=== PATIENT | male | born 1965 | race Caucasian/White ===

== ENCOUNTER 2017-06-14 08:32 | Emergency (ER) | payer OTHER, SELFPAY | END 2017-06-14 10:04 | disposition home or self-care (01) | PROVIDERS: Emergency Provider Nurse Practitioner; Family Provider Family Medicine; Visit Provider Nurse Practitioner | DX: J32.9 Chronic sinusitis, unspecified (principal); I20.9 Angina pectoris, unspecified; Z87.891 Personal history of nicotine dependence | CPT/HCPCS: 87804; 96372; 99201 ==

== ENCOUNTER → 2017-09-12 15:13 | Outpatient (POV) | payer OTHER, SELFPAY | PROVIDERS: Visit Provider Nurse Practitioner Acute Care | DX: Z00.00 Encounter for general adult medical examination without abnormal findings (principal) ==

== ENCOUNTER → 2017-10-03 15:24 | Outpatient (CLI) | payer OTHER, SELFPAY ==
[2017-10-03 15:36] VITALS: BMI 20.5
[2017-10-03 15:58] VITALS: BP 148/99; PULSE 89; RESP 18; TEMP 36.6; O2SAT 98
[2017-10-03 16:00] VITALS: BP 147/100; PULSE 68; RESP 20; TEMP 36.9; O2SAT 96
[2017-10-03 16:02] LABS: Blood Urea Nitrogen 17 mg/dL (7-18); Carbon Dioxide 22 mmol/L (21.0-32.0); Chloride 101 mmol/L (98-107); Creatinine Clearance Estimated 89 mL/min (0-300); Creatinine,Serum 0.89 mg/dL (0.70-1.30); Estimated Glomerular Filt Rate 89 ml/min (>60); GFR (African American) 108 ML/MIN (>60); Glucose 137 mg/dL (74-106); Magnesium 1.8 mg/dL (1.4-2.2); Sodium 137 mmol/L (136-145)
[2017-10-03 16:30] VITALS: BP 135/58; PULSE 68; RESP 20; TEMP 36.9; O2SAT 96
[2017-10-03 17:00] VITALS: BP 135/70; PULSE 68; RESP 20; TEMP 36.4; O2SAT 96
[2017-10-03 20:14] VITALS: BP 165/75; PULSE 77; RESP 18; TEMP 36.7; O2SAT 99
== END ==
PROVIDERS: PCP Family Medicine; Visit Provider Family Medicine
DX: E86.0 Dehydration (principal)
CPT/HCPCS: 80048; 83735; 96360; 96361

== ENCOUNTER → 2017-10-12 09:44 | Outpatient (CLI) | payer OTHER, SELFPAY ==
--- NOTE | 2017-10-12 10:02 | CT_ITS ---
CT angio LE BI CT angiogram abdominal aorta with bilateral lower extremity runoff INDICATION: Bilateral lower extremity claudication, leg pain, left greater than right ITS.REASON: CLAUDICATION OF LEFT LOWER EXTREMITY ORDERING PHYSICIAN: Luis Gamez MD PATIENT AGE: 52 years TECHNIQUE: Axial images are obtained following the intravenous ministration 1 20 mL of Isovue-370 contrast. 3-D, Sagittal and coronal reformatted images are reviewed as well. All CT scans at the facility use one or more dose reduction, viz: automated exposure control; ma/kV adjustment per patient size (including targeted exams where dose is matched to indication; i.e. head); or iterative reconstruction technique. FINDINGS: Angiographic findings: Aortogram: No evidence of aortic aneurysm. Atherosclerotic changes involve the aorta and its branches with approximately 50% stenosis of the origin of the right renal artery. Mild stenosis of the origin of the celiac artery of 40%. The LUZ ELENA is not visualized. There are 2 accessory right renal arteries going to the mid and lower pole of the right kidney with high-grade stenosis of the artery to the mid polar region of the right kidney of greater than 50%. Atheromatous changes involve both common, external, and internal iliac arteries that are moderate amount of atheromatous plaque. High-grade stenosis involving the left distal external iliac artery of 75%. Right lower extremity runoff: Generalized atheromatous changes. 75% stenosis of the ostium of the right SFA. Segmental areas of stenosis involving the entire length of the right SFA radiating up to 50% in the mid to distal SFA. Atheromatous changes involving the popliteal artery on the right and the tibial peroneal trunk with diffuse multisegmental areas of stenosis involving the anterior tibial, posterior tibial, and peroneal artery. Posterior tibial and peroneal arteries are patent at the ankle. Left lower extremity runoff: There is high-grade stenosis of the distal left external iliac artery of 75%. Left lower extremity runoff: Segmental areas of stenosis involving the SFA, popliteal, and runoff vessels. There is a high-grade area of stenosis involving the proximal left SFA of 80% with a long segment of narrowing involving the mid left SFA resulting in occlusion of the mid left SFA with reconstitution in the distal SFA followed by areas of stenosis of up to 75%. The popliteal artery is patent although somewhat small.. Significant atheromatous segmental plaques involving the trifurcation vessels and the runoff. The peroneal and posterior tibial are patent at the ankle. Nonvascular findings: The lung bases are clear. The liver, spleen, adrenal glands and pancreas are unremarkable. There has been prior cholecystectomy with some slight increase in density of the portal region which may be related to partial volume averaging artifact from unopacified duodenum and portal vessels. Follow-up exam with oral contrast may confirm. There is mild thickening versus nondistention of the colon. No pelvic mass or abnormal fluid collection is evident. IMPRESSION: 1. Extensive atheromatous changes of the abdominal aorta and bilateral lower extremity runoffs as described above. Significant findings include: Right renal artery stenosis with 3 right renal arteries. High grade stenosis of the left external iliac artery is 75%. 80% stenosis of proximal left SFA with long segment stenosis and occlusion of the mid left SFA with reconstitution of the mid to distal left SFA. 75% stenosis of the ostium of the right SFA. 2. Mild thickening versus nondistention of the colon. Colitis is a consideration. 3. Slight increased density within the portal region which may be due to partial volume averaging artifact. This may become firm with follow-up with oral co
== END ==
PROVIDERS: Family Provider Family Medicine; PCP Family Medicine; Visit Provider Family Medicine
DX: I73.9 Peripheral vascular disease, unspecified (principal)
CPT/HCPCS: 73701; Q9967

== ENCOUNTER → 2017-10-24 10:33 | Outpatient (CLI) | payer OTHER, SELFPAY ==
[2017-10-24 11:27] LABS: Anion Gap 14.3 mEq/L (5-15); Blood Urea Nitrogen 9 mg/dL (7-18); Carbon Dioxide 23 mmol/L (21.0-32.0); Chloride 104 mmol/L (98-107); Creatinine,Serum 0.82 mg/dL (0.70-1.30); Estimated Glomerular Filt Rate 98 ml/min (>60); GFR (African American) 118 ML/MIN (>60); Glucose 145 mg/dL (74-106); Magnesium 1.5 mg/dL (1.4-2.2); Potassium 3.3 mmoL/L (3.5-5.1); Sodium 138 mmol/L (136-145)
== END ==
PROVIDERS: Visit Provider Internal Medicine
DX: E87.6 Hypokalemia (principal)
CPT/HCPCS: 36415; 80048; 83735

== ENCOUNTER → 2018-10-10 07:35 | Outpatient (CLI) | payer OTHER, SELFPAY ==
[2018-10-10 08:18] LABS: Basophils # 0.1 K/mm3 (0-0.2); Basophils % 0.5 % (0.1-2.0); Eosinophils # 0.4 K/mm3 (0.0-0.4); Eosinophils % 3.9 % (0.1-12.0); Hemoglobin 12.6 g/dL (14.1-18.0); Lymphocytes # 1.1 K/mm3 (0.7-4.5); Lymphocytes % 11.6 % (10-50); Mean Corpuscular HGB Conc 31.4 g/dL (31.8-35.4); Mean Corpuscular Hemoglobin 30.4 pg (27.0-31.2); Mean Corpuscular Volume 96.8 fl (80-94); Mean Platelet Volume 7.4 fl (7.4-10.4); Monocytes # 0.5 K/mm3 (0.1-1.0); Monocytes % 5.2 % (1.7-9.3); Neutrophils # 7.7 K/mm3 (1.8-7.8); Neutrophils % 78.8 % (37.0-80.0); Platelet Count 355 K/mm3 (142-424); Red Blood Count 4.13 M/mm3 (4.60-6.20); Red Cell Distribution Width 17.1 % (11.5-17.5); White Blood Count 9.8 K/mm3 (4.8-10.8)
[2018-10-10 09:22] LABS: Anion Gap 14.2 mEq/L (5-15); Blood Urea Nitrogen 11 mg/dL (7-18); Carbon Dioxide 24 mmol/L (21.0-32.0); Chloride 105 mmol/L (98-107); Chol/HDL Ratio 3.9 (1-3.5); Cholesterol 154 mg/dL (140-200); Creatinine,Serum 0.82 mg/dL (0.70-1.30); Estimated Glomerular Filt Rate 98 ml/min (>60); GFR (African American) 118 ML/MIN (>60); Glucose 114 mg/dL (74-106); HDL Cholesterol 40 mg/dL (27-67); LDL Cholesterol 87 mg/dL (0-130); Potassium 4.2 mmoL/L (3.5-5.1); Sodium 139 mmol/L (136-145); Triglycerides 134 mg/dL (30-200); VLDL Cholesterol 27 mg/dL (0-40)
[2018-10-11 09:13] LABS: LH 11.2 mIU/mL (1.7-8.6)
[2018-10-12 07:10] LABS: Testosterone,Total 478 ng/dL (264-916)
[2018-10-14 12:39] LABS: Vitamin A 62.3 ug/dL (20.1-62.0); Vitamin E Alpha Tocopherol 9.9 mg/L (7.0-25.1)
== END ==
PROVIDERS: Physician Assistant Medical; Visit Provider Family Medicine
DX: K86.1 Other chronic pancreatitis (principal); R68.82 Decreased libido; J44.9 Chronic obstructive pulmonary disease, unspecified; I77.9 Disorder of arteries and arterioles, unspecified; E87.6 Hypokalemia; F17.210 Nicotine dependence, cigarettes, uncomplicated
CPT/HCPCS: 36415; 80048; 80061; 82652; 83001; 83002; 84403; 84446; 84590; 85025

== ENCOUNTER → 2019-07-31 09:18 | Outpatient (CLI) | payer OTHER, SELFPAY ==
--- NOTE | 2019-07-31 09:23 | XR_ITS ---
PROCEDURE: XR FOOT WT BEARING LT 3V CLINICAL INDICATION: pain COMPARISON: FTL2 FOOT-LT-2 VIEWS from 08/19/2016 FTR2 FOOT-RT-2 VIEWS from 08/19/2016 FINDINGS: No fracture or dislocation. No lytic or blastic change. There is normal mineralization. The joint spaces are well-preserved. No significant degenerative/arthritic changes. No erosive changes evident. Other findings:None. IMPRESSION: Negative left foot Dictated by: Addi Olivier MD 07/31/2019 10:17 Electronically signed by Addi Olivier MD in [place] 07/31/2019 10:17
--- NOTE | 2019-07-31 09:23 | XR_ITS ---
PROCEDURE: XR FOOT WT BEARING RT 3V CLINICAL INDICATION: pain COMPARISON: FTL2 FOOT-LT-2 VIEWS from 08/19/2016 FTR2 FOOT-RT-2 VIEWS from 08/19/2016 FINDINGS: No fracture or dislocation. No lytic or blastic change. There is normal mineralization. The joint spaces are well-preserved. No significant degenerative/arthritic changes. No erosive changes evident. Other findings:Small area of sclerosis is present in the posterior aspect of the calcaneus consistent with a bone island. There may also be a bone island in the anterior aspect of the calcaneus. As lucency is noted projecting over the posterior aspect of the talus on the lateral view measuring approximately 6 mm not readily apparent on the previous study. This could even be within the fibula. IMPRESSION: 1. No acute finding. 2. Probable bone islands of the calcaneus. 3. On the lateral view there is a 6 mm lucency projecting over the posterior aspect of the talus/fibular region. Ankle films may provide further evaluation. Dictated by: Addi Olivier MD 07/31/2019 10:16 Electronically signed by Addi Olivier MD in [place] 07/31/2019 10:16
--- NOTE | 2019-07-31 11:19 | XR_ITS ---
PROCEDURE: XR ANKLE WT BEARING LT MIN 3V CLINICAL INDICATION: pain COMPARISON: XR FOOT WT BEARING RT 3V from 07/31/2019 FINDINGS: There is an old fracture versus ununited ossification center at the tip of the medial malleolus. No acute fracture or dislocation. IMPRESSION: Old fracture versus ununited ossification center at the tip the medial malleolus Dictated by: Addi Olivier MD 07/31/2019 15:03 Electronically signed by Addi Olivier MD in [place] 07/31/2019 15:03
--- NOTE | 2019-07-31 11:19 | XR_ITS ---
PROCEDURE: XR ANKLE WT BEARING RT MIN 3V CLINICAL INDICATION: pain Pain COMPARISON: No exams were available for comparison FINDINGS: A small calcific density is present along the anterior medial aspect of the tip the lateral malleolus consistent with an avulsion fracture age indeterminate. No other significant anomalies are evident. IMPRESSION: Small avulsion fracture at the tip the lateral malleolus medially and anteriorly which may be old. Otherwise negative Dictated by: Addi Olivier MD 07/31/2019 15:06 Electronically signed by Addi Olivier MD in [place] 07/31/2019 15:06
[2019-07-31 12:26] LABS: Basophils # 0.1 K/mm3 (0-0.2); Basophils % 0.5 % (0.1-2.0); Eosinophils # 0.2 K/mm3 (0.0-0.4); Eosinophils % 2.4 % (0.1-12.0); Hematocrit 35.2 % (42.0-52.0); Lymphocytes # 1.1 K/mm3 (0.7-4.5); Mean Corpuscular HGB Conc 31.2 g/dL (31.8-35.4); Mean Corpuscular Hemoglobin 29.3 pg (27.0-31.2); Mean Corpuscular Volume 93.8 fl (80-94); Mean Platelet Volume 7.6 fl (7.4-10.4); Monocytes # 0.6 K/mm3 (0.1-1.0); Monocytes % 5.9 % (1.7-9.3); Neutrophils # 8.1 K/mm3 (1.8-7.8); Neutrophils % 80.2 % (37.0-80.0); Platelet Count 406 K/mm3 (142-424); Red Blood Count 3.75 M/mm3 (4.60-6.20); Red Cell Distribution Width 18.2 % (11.5-17.5); White Blood Count 10.1 K/mm3 (4.8-10.8)
[2019-07-31 14:33] LABS: Alanine Aminotransferase 15 U/L (21-72); Albumin Level 3.2 g/dL (3.4-5.0); Alkaline Phosphatase 150 U/L (46-116); Anion Gap 14.9 mEq/L (5-15); Aspartate Amino Transferase 14 U/L (15-37); Bilirubin,Total 0.2 mg/dL (0.2-1.0); Blood Urea Nitrogen 8 mg/dL (7-18); Calcium 8.4 mg/dL (8.5-10.1); Carbon Dioxide 24 mmol/L (21.0-32.0); Chloride 108 mmol/L (98-107); Creatinine,Serum 1.12 mg/dL (0.70-1.30); Estimated Glomerular Filt Rate 68 ml/min (>60); GFR (African American) 82 ML/MIN (>60); Globulin 3.2 gm/dl (1.3-3.2); Glucose 94 mg/dL (74-106); Potassium 3.9 mmoL/L (3.5-5.1); Sodium 143 mmol/L (137-145); Thyroid Stimulating Hormone 2.52 uIU/ml (0.358-3.740); Total Protein,Serum 6.4 g/dL (6.4-8.2)
[2019-08-01 16:29] LABS: Folate 3.8 ng/mL (>3.0); Vitamin B12 508 pg/mL (232-1245); Vitamin D 25 Hydroxy 24.7 ng/mL (30.0-100.0)
== END ==
PROVIDERS: PCP Family Medicine; Visit Provider Podiatrist
DX: M19.072 Primary osteoarthritis, left ankle and foot (principal); M19.071 Primary osteoarthritis, right ankle and foot; M25.372 Other instability, left ankle; M21.372 Foot drop, left foot; L84 Corns and callosities; M21.6X2 Other acquired deformities of left foot; M21.6X1 Other acquired deformities of right foot; G62.9 Polyneuropathy, unspecified
CPT/HCPCS: 36415; 73610; 73630; 80053; 82607; 82652; 82746; 84443; 85025

== ENCOUNTER → 2019-08-13 12:09 | Outpatient (POV) | payer OTHER, SELFPAY | PROVIDERS: PCP Family Medicine; Visit Provider Specialist | DX: M25.372 Other instability, left ankle (principal); M25.572 Pain in left ankle and joints of left foot; R29.898 Other symptoms and signs involving the musculoskeletal system; M21.372 Foot drop, left foot | CPT/HCPCS: 95886; 95909 ==

== ENCOUNTER → 2020-01-31 10:38 | Outpatient (CLI) | payer OTHER, SELFPAY ==
[2020-01-31 10:58] LABS: Basophils # 0.1 K/mm3 (0-0.2); Basophils % 0.4 % (0.1-2.0); Eosinophils # 0.1 K/mm3 (0.0-0.4); Eosinophils % 1.1 % (0.1-12.0); Hematocrit 31.5 % (42.0-52.0); Hemoglobin 9.1 g/dL (14.1-18.0); Lymphocytes # 1.3 K/mm3 (0.7-4.5); Lymphocytes % 10.6 % (10-50); Mean Corpuscular Hemoglobin 26.6 pg (27.0-31.2); Mean Corpuscular Volume 91.7 fl (80-94); Mean Platelet Volume 7.8 fl (7.4-10.4); Monocytes # 0.7 K/mm3 (0.1-1.0); Monocytes % 5.5 % (1.7-9.3); Neutrophils % 82.5 % (37.0-80.0); Platelet Count 660 K/mm3 (142-424); Red Blood Count 3.44 M/mm3 (4.60-6.20); Red Cell Distribution Width 19.4 % (11.5-17.5); White Blood Count 12.2 K/mm3 (4.8-10.8)
[2020-01-31 11:23] LABS: Alanine Aminotransferase 13 U/L (12-78); Albumin Level 2.9 g/dl (3.5-5.0); Alkaline Phosphatase 169 U/L (38-126); Anion Gap 14.8 mEq/L (5-15); Aspartate Amino Transferase 15 U/L (17-59); Bilirubin,Total 0.4 mg/dl (0.2-1.3); Blood Urea Nitrogen 10 mg/dl (9-20); Calcium 8.8 mg/dl (8.4-10.2); Carbon Dioxide 20 mmol/L (22.0-30.0); Chloride 106 mmol/L (98-107); Estimated Glomerular Filt Rate 100 ml/min (>60); GFR (African American) 121 ML/MIN (>60); Glucose 131 mg/dl (74-100); Lipase 233 U/L (23-300); Potassium 3.8 mmoL/L (3.5-5.1); Sodium 137 mmol/L (136-145); Total Protein,Serum 5.9 g/dl (6.3-8.2)
== END ==
PROVIDERS: Visit Provider Physician Assistant Medical
DX: R63.4 Abnormal weight loss (principal)
CPT/HCPCS: 36415; 80053; 83690; 85025

== ENCOUNTER → 2020-03-17 14:10 | Outpatient (CLI) | payer OTHER, SELFPAY ==
[2020-03-17 14:54] LABS: Basophils % 0.1 % (0.1-2.0); Eosinophils % 0.1 % (0.1-12.0); Hematocrit 28.5 % (42.0-52.0); Hemoglobin 8.2 g/dL (14.1-18.0); Lymphocytes # 0.5 K/mm3 (0.7-4.5); Lymphocytes % 2.5 % (10-50); Mean Corpuscular HGB Conc 28.9 g/dL (31.8-35.4); Mean Corpuscular Hemoglobin 27.9 pg (27.0-31.2); Mean Corpuscular Volume 96.3 fl (80-94); Mean Platelet Volume 7.8 fl (7.4-10.4); Monocytes # 0.5 K/mm3 (0.1-1.0); Monocytes % 2.2 % (1.7-9.3); Platelet Count 573 K/mm3 (142-424); Red Blood Count 2.96 M/mm3 (4.60-6.20); Red Cell Distribution Width 18.1 % (11.5-17.5)
[2020-03-17 15:05] LABS: MANUAL DIFFERENTIAL MANUAL DIFFERENTIAL (MANUAL DIFF)
[2020-03-17 15:34] LABS: Chloride 105 mmol/L (98-107); Potassium 4.9 mmoL/L (3.5-5.1); Sodium 132 mmol/L (136-145)
[2020-03-17 15:37] LABS: Alanine Aminotransferase 40 U/L (12-78); Albumin Level 2.5 g/dl (3.5-5.0); Alkaline Phosphatase 111 U/L (38-126); Anion Gap 18.9 mEq/L (5-15); Aspartate Amino Transferase 21 U/L (17-59); Bilirubin,Total 0.3 mg/dl (0.2-1.3); Blood Urea Nitrogen 49 mg/dl (9-20); Calcium 8.7 mg/dl (8.4-10.2); Carbon Dioxide 13 mmol/L (22.0-30.0); Estimated Glomerular Filt Rate 45 ml/min (>60); GFR (African American) 54 ML/MIN (>60); Globulin 2.6 g/dL (1.3-3.2); Glucose 119 mg/dl (74-100); Total Protein,Serum 5.1 g/dl (6.3-8.2)
[2020-03-17 15:48] LABS: Lymphocytes % 5 % (10-50); Monocytes % 4 % (2-9); Neutrophils % 91 % (42-76); Total Cells Counted 100
[2020-03-17 15:49] LABS: Acanthocytes 2+; Anisocytosis 2+; Poikilocytosis 2+; Stomatocytes 2+
== END ==
PROVIDERS: Visit Provider Internal Medicine Medical Oncology
DX: C34.91 Malignant neoplasm of unspecified part of right bronchus or lung (principal)
CPT/HCPCS: 36415; 80053; 85007; 85025

== ENCOUNTER 2020-03-22 12:13 | Inpatient (IN) | payer OTHER, SELFPAY ==
[2020-03-22] VITALS (15 sets, daily range): BP systolic 90–138; BP diastolic 45–87; PULSE 81–112; RESP 14–20; TEMP 36.4–36.7; O2SAT 88–100; BMI 19.8; BMI 13.6
--- NOTE | 2020-03-22 12:16 | HMH.EDGENADL ---
ED Disposition Clinical Impression: Healthcare-associated pneumonia Respiratory failure with hypoxia Qualifiers: Chronicity: acute Qualified Code(s): J96.01 - Acute respiratory failure with hypoxia Acute renal failure Qualifiers: Acute renal failure type: unspecified Qualified Code(s): N17.9 - Acute kidney failure, unspecified Sepsis Qualifiers: Sepsis type: sepsis due to unspecified organism Sepsis acute organ dysfunction status: with acute organ dysfunction Severe sepsis acute organ dysfunction type: acute renal failure Acute renal failure type: unspecified Severe sepsis shock status: without septic shock Qualified Code(s): A41.9 - Sepsis, unspecified organism Metastatic primary lung cancer Qualifiers: Laterality: right Qualified Code(s): C34.91 - Malignant neoplasm of unspecified part of right bronchus or lung Disposition: Admitted As Inpatient Condition on Discharge: Serious - Critical Care Critical Care Time: Yes Attestation: On , the high probability of a clinically significant, sudden or life threatening deterioration of the following system(s) required my full and direct attention, intervention and personal management. The time I documented below is in addition to time spent performing reported procedures but includes the following listed in this critical care notation. Total Critical Care Time: 40 Vital system(s) involved:: Respiratory Failure, Renal Failure My critical care processes included: Assessment & monitoring of V/S, Initial and Re-exams, Data Review/Interpretation, Coordinating Care, Medication Orders and management, Documentation Medical Decision Making - Medical Records Medical records reviewed: Yes: I reviewed the patient's medical records. MR Comment: Reviewed oncology visit with Dr. Sullivan on 03/13/2020. She indicates patient had been admitted to [facility] 02/21/2020 through 03/02/2020. CTA showed a right hilar mass and bilateral small masses and right hilar adenopathy. - Aristeo Inquiry Pt receiving controlled substance: Yes Aristeo was queried for this patient: No Reason not queried -: Emergent pt cond-no time Risks and benefits of using a controlled substance: were not discussed with pt by me Vital Signs: 03/22/20 12:14 03/22/20 12:30 03/22/20 13:00 Temperature 98.1 F Temperature Source Oral Pulse Rate Pulse Rate [Right] 104 H 99 H 98 H Respiratory Rate 17 19 19 Blood Pressure Blood Pressure [Right Arm] 135/78 123/59 L 104/60 L Blood Pressure Mean [Right Arm] 97 80 74 Blood Pressure Source Blood Pressure Source [Right Arm] Blood Pressure Position Blood Pressure Position [Right Arm] 02 Sat by Pulse Oximetry 90 L 92 L 91 L Oxygen Delivery Method Room Air Nasal Cannula Nasal Cannula Oxygen Flow Rate (LPM) 2 03/22/20 13:30 03/22/20 14:00 03/22/20 14:14 Temperature Temperature Source Pulse Rate Pulse Rate [Right] 100 H 102 H 99 H Respiratory Rate 16 15 14 Blood Pressure Blood Pressure [Right Arm] 102/55 L 104/87 L 90/45 L Blood Pressure Mean [Right Arm] 70 92 60 Blood Pressure Source Blood Pressure Source [Right Arm] Automatic Cuff Blood Pressure Position Blood Pressure Position [Right Arm] Sitting 02 Sat by Pulse Oximetry 93 L 90 L 91 L Oxygen Delivery Method Nasal Cannula Nasal Cannula Oxygen Flow Rate (LPM) 2 03/22/20 14:35 03/22/20 15:00 03/22/20 15:17 Temperature 97.7 F Temperature Source Axillary Pulse Rate Pulse Rate [Right] 106 H 99 H 105 H Respiratory Rate 16 20 Blood Pressure Blood Pressure [Right Arm] 100/51 L 105/59 L 138/77 Blood Pressure Mean [Right Arm] 67 74 97 Blood Pressure Source Blood Pressure Source [Right Arm] Automatic Cuff Automatic Cuff Blood Pressure Position Blood Pressure Position [Right Arm] Sitting Supine 02 Sat by Pulse Oximetry 94 L 91 L 88 L Oxygen Delivery Method Nasal Cannula Nasal Cannula Oxygen Flow Rate (LPM) 2 03/22/20 16:46 Temperature 98.1 F
--- NOTE | 2020-03-22 12:24 | ECG_ITS ---
APPROVED REPORT Exam: Resting ECG HR:102 bpm ECG Measurements Heart Rate 102 AXES IL 128 P 82 QRSd 90 QRS 76 QT 334 T 95 QTc 435 <Conclusion> Sinus tachycardia Right atrial enlargement ST elevation, consider early repolarization, pericarditis, or injury Abnormal ECG Electronically signed by : Luis Guerrero, 03/23/2020 09:02:34
[2020-03-22 12:47] LABS: ABG Base Excess -18.5 mmol/L (-2.4-2.3); ABG HCO3 8.8 mmhg (22.0-26.0); ABG Oxygen Saturation 90 % (90-100); ABG PCO2 20.7 mmhg (35.0-45.0); ABG PH 7.25 mmol/L (7.35-7.45); ABG PO2 68.2 mmhg (80-100); ABG TCO2 9.4 mmhg (23-27); Allen's Test Acceptable; Source Right Radial
--- NOTE | 2020-03-22 12:53 | XR_ITS ---
PROCEDURE: XR CHEST PORTABLE CLINICAL HISTORY: soa, lung cancer COMPARISON: CR CXR1 CHEST-PORTABLE from 03/21/2015 CR CXR1 CHEST-PORTABLE from 03/21/2015 CR CXR CHEST(2 VIEWS-NOT PORTABLE) from 05/01/2016 FINDINGS: The lung gallego are mildly hyperexpanded. Coarse patchy ill-defined pneumonic infiltrates are seen in the left perihilar region left upper lobe and more prominent in the left lower lobe primarily superior segment. There is prominent right paratracheal lobulated mass likely adenopathy. There is minimal course ill-defined pneumonic infiltrate right perihilar region and right lower lobe. There is no pleural fluid. Cardiac size is normal and there is no pulmonary congestion. IMPRESSION: Coarse bilateral pneumonic infiltrates certainly more prominent left perihilar region and left lower lobe along with prominent right paratracheal adenopathy and none of these findings were seen on the previous chest films. Dictated by: Dr. Wes Whitten MD 03/22/2020 15:52 Dr. Wes Whitten MD in [place] 03/22/2020 15:52
--- NOTE | 2020-03-22 13:00 | PC.NURSE ---
UNABLE TO OBTAIN BLOOD, STUCK PT MULTIPLE TIMES, NOTIFIED LAB TO COME AND OBTAIN BLOOD SAMPLES.
--- NOTE | 2020-03-22 13:07 | PC.NURSE ---
PT GIVEN WARM BLANKET AND ICE, NO OTHER NEEDS AT THIS TIME.
--- NOTE | 2020-03-22 13:13 | PC.NURSE ---
[facility]
[2020-03-22 13:37] LABS: Chloride 112 mmol/L (98-107); Sodium 138 mmol/L (136-145)
[2020-03-22 13:38] LABS: Basophils # 0.2 K/mm3 (0-0.2); Basophils % 1.1 % (0.1-2.0); Eosinophils % 0.1 % (0.1-12.0); Hematocrit 30.4 % (42.0-52.0); Hemoglobin 8.9 g/dL (14.1-18.0); Lymphocytes # 0.2 K/mm3 (0.7-4.5); Lymphocytes % 1.2 % (10-50); Mean Corpuscular HGB Conc 29.2 g/dL (31.8-35.4); Mean Corpuscular Hemoglobin 27.8 pg (27.0-31.2); Mean Corpuscular Volume 95.3 fl (80-94); Mean Platelet Volume 9.6 fl (7.4-10.4); Monocytes # 0.2 K/mm3 (0.1-1.0); Monocytes % 1.3 % (1.7-9.3); Neutrophils % 96.4 % (37.0-80.0); Platelet Count 427 K/mm3 (142-424); Potassium 4.9 mmoL/L (3.5-5.1); Red Blood Count 3.19 M/mm3 (4.60-6.20); Red Cell Distribution Width 18.4 % (11.5-17.5); White Blood Count 15.5 K/mm3 (4.8-10.8)
[2020-03-22 13:40] LABS: MANUAL DIFFERENTIAL MANUAL DIFFERENTIAL (MANUAL DIFF)
[2020-03-22 13:41] LABS: Calcium 9.3 mg/dl (8.4-10.2); Glucose 223 mg/dl (74-100)
[2020-03-22 13:42] LABS: Lactic Acid 2.3 mmol/L (0.7-2.1)
[2020-03-22 13:47] LABS: Creatinine Clearance Estimated 28 mL/min (50-200); Estimated Glomerular Filt Rate 28 ml/min (>60); GFR (African American) 34 ML/MIN (>60)
[2020-03-22 13:50] LABS: NT Pro Brain Natriuretic Pep. 4640 pg/mL (0-125)
[2020-03-22 13:51] LABS: Acanthocytes 1+; Hypochromasia 1+; Lymphocytes % 3 % (10-50); Monocytes % 3 % (2-9); Neutrophils % 91 % (42-76); Platelet Estimate Normal; Poikilocytosis 1+; Total Cells Counted 100
[2020-03-22 13:52] LABS: Activated Partial Thrombo Time 32.7 seconds (23.6-34.0); Prothrombin Time 10.9 seconds (9.4-11.8)
[2020-03-22 13:53] LABS: Troponin I < 0.01 ng/ml (0.00-0.034)
[2020-03-22 14:04] LABS: Coronavirus 19 IgG Antibody Negative (Negative); Coronavirus 19 IgM Antibody Negative (Negative)
--- NOTE | 2020-03-22 14:22 | PC.NURSE ---
spoke with radiologist and is now speaking with the pt and his family.
--- NOTE | 2020-03-22 14:31 | PC.NURSE ---
Dr Montiel speaking with Dr Leary at this time.
[2020-03-22 15:07] LABS: Alanine Aminotransferase 33 U/L (12-78); Albumin Level 2.7 g/dl (3.5-5.0); Albumin/Globulin Ratio 0.9 (1.1-1.8); Alkaline Phosphatase 158 U/L (38-126); Anion Gap 20.9 mEq/L (5-15); Aspartate Amino Transferase 33 U/L (17-59); Bilirubin,Total 0.3 mg/dl (0.2-1.3); Globulin 3.1 g/dL (1.3-3.2); Total Protein,Serum 5.8 g/dl (6.3-8.2)
[2020-03-22 16:57] LABS: Troponin I < 0.01 ng/ml (0.00-0.034)
[2020-03-22 17:13] LABS: Reflex Lactic Add Lactic Reflex
--- NOTE | 2020-03-22 18:35 | PC.NURSE ---
WHEN PT ARRIVED TO THE FLOOR FROM THE ED IT TOOK 2 ASSIST TO MOVE PT FROM STRETCHER TO BED. PT HAD A SMALL AREA NOTED TO THE BUTTOCKS AND HAS A SCAR ON HIS HEAD FROM SURGERY AT A FEW WEEKS AGO. PT STATED HE WAS IN A LOT OF PAIN RATED 10/10. AFTER PT GOT PAIN MEDICATION HE WAS ASKED IF IT WOULD BE OKAY IF WE TOOK PICTURES OF HIS SKIN ISSUES FOR THE CHART. PT STATED I WOULD REALLY APPRECIATE AFTER I GET THIS PAIN MEDICATION IF YOU WOULD LET ME REST. PT STATED HOPEFULLY HE WOULD FEEL MORE UP TO IT TOMORROW. PT HAS HAD ALL OF HIS IV ANTIBIOTICS THAT HAVE BEEN ORDERED AND IT WAS VERIFIED WITH THAT PT HAD 1 L IVF BOLUS WHILE IN THE ED. PT HAS BEEN OFFERED A NICOTINE PATCH. REFUSED DINNER. PT HAS BEEN SIPPING ON WATER AND EATING ICE. LUNG SOUNDS HAVE SCATTERED RHONCHI. ABDOMEN SOFT/THIN WITH HYPOACTIVE BOWEL SOUNDS. SKIN IS JAUNDICED. WILL CONTINUE TO MONITOR.
[2020-03-22 18:49] LABS: Lactic Acid Follow Up (RFLX 1) 3.4 mmol/L (0.7-2.1)
[2020-03-22 20:22] LABS: Reflex Lactic (2 hrs) Add Lactic Reflex
[2020-03-22 21:30] LABS: Lactic Acid Follow up (RFLX 2) 3.2 mmol/L (0.7-2.1)
--- NOTE | 2020-03-22 22:47 | PC.NURSE ---
1929 pt was again asked about signing consent for pictures to be taken and allowing nursing staff to take pictures of scar on head and small area on buttocks, pt again refused and asked to just rest tonight
[2020-03-23] VITALS (32 sets, daily range): BP systolic 66–110; BP diastolic 31–59; PULSE 48–120; RESP 10–17; TEMP 36.1–36.9; O2SAT 86–95; BMI 14.1
[2020-03-23 06:05] LABS: Basophils # 0.1 K/mm3 (0-0.2); Basophils % 1.1 % (0.1-2.0); Eosinophils % 0.2 % (0.1-12.0); Lymphocytes # 0.1 K/mm3 (0.7-4.5); Lymphocytes % 0.6 % (10-50); Mean Corpuscular HGB Conc 29.6 g/dL (31.8-35.4); Mean Corpuscular Hemoglobin 28.4 pg (27.0-31.2); Mean Corpuscular Volume 95.8 fl (80-94); Mean Platelet Volume 9.5 fl (7.4-10.4); Monocytes # 0.2 K/mm3 (0.1-1.0); Monocytes % 1.6 % (1.7-9.3); Neutrophils # 11.8 K/mm3 (1.8-7.8); Neutrophils % 96.6 % (37.0-80.0); Platelet Count 260 K/mm3 (142-424); Red Blood Count 2.53 M/mm3 (4.60-6.20); Red Cell Distribution Width 19.1 % (11.5-17.5); White Blood Count 12.2 K/mm3 (4.8-10.8)
[2020-03-23 06:07] LABS: Hemoglobin 7.2 g/dL (14.1-18.0)
[2020-03-23 06:08] LABS: Hematocrit 24.2 % (42.0-52.0); MANUAL DIFFERENTIAL MANUAL DIFFERENTIAL (MANUAL DIFF)
--- NOTE | 2020-03-23 06:35 | PC.NURSE ---
shift summary, pt has rested well t/o shift, pt complained of pain one time and was treated per AUG, pt has denied pain two other times, O2 sats have been 90-100% on 3L NC, O2 sats have been hard to get due to cold extremities, pulse ox sensor currently on forehead, pt has remained sinus tach on nuclear monitoring technician
[2020-03-23 06:43] LABS: Anion Gap 21.1 mEq/L (5-15); Chloride 116 mmol/L (98-107); Potassium 5.1 mmoL/L (3.5-5.1); Sodium 141 mmol/L (136-145)
--- NOTE | 2020-03-23 06:45 | PC.NURSE ---
pt has still refused to have pictures taken
[2020-03-23 06:49] LABS: Creatinine Clearance Estimated 21 mL/min (50-200); Estimated Glomerular Filt Rate 27 ml/min (>60); GFR (African American) 32 ML/MIN (>60)
[2020-03-23 06:52] LABS: Lymphocytes % 3 % (10-50); Neutrophils % 89 % (42-76); Platelet Estimate Normal; Poikilocytosis 2+; Total Cells Counted 100
[2020-03-23 06:53] LABS: Anisocytosis 2+; Burr Cells 2+; Hypochromasia 3+; Tear Drop Cells 1+
[2020-03-23 07:01] LABS: Carbon Dioxide 9 mmol/L (22.0-30.0)
[2020-03-23 07:02] LABS: Blood Urea Nitrogen 105 mg/dl (9-20); Glucose 135 mg/dl (74-100)
--- NOTE | 2020-03-23 07:06 | PC.NURSE ---
pt currently on 2 L NC and O2 sat is 93
--- NOTE | 2020-03-23 08:40 | HMH.HP ---
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 Patient was found to have bilateral pneumonia as well as acute kidney injury. Patient was admitted for treatment of hospital-acquired pneumonia due to recent hospitalization at the [facility] where his cancer diagnosis was made. Since discharge from patient is followed up with local oncology with anticipation of beginning some form of treatment as well as local surgeon with scheduled port placement for March 26. Regarding patient's history over the last 3 days the patient is the source of interview and can provide little very little information other than he was weaker and felt short of breath. He is unaware of any fevers. He denies chills. He does endorse a poor appetite and records would indicate patient has lost approximately 20 pounds in the last 2 weeks. Apparently there had been discussion during his visit with Dr. Rodriguez about placement of a feeding tube although there is suspicion of carcinomatosis which could complicate the procedure. [facility] History I have reviewed the patient's past medical history: Yes Medical History: Reports:: Cancer (metastatic lung cancer), Chronic Obstructive Pulmonary Disease (COPD), Peripheral Artery Disease Denies:: Diabetes Mellitus Type 1, Diabetes Mellitus Type 2, MRSA *Have you ever received a pneumonia vaccine?: Yes *Have you received a flu vaccine this season?: Yes Other Surgeries: Yes: Appendectomy, Cholecystectomy, Coronary Stent Amputation: No Fractures: No - *Social History Last grade of school completed: High school graduate Smoking Status: Current every day smoker # Packs/Day (cigarettes): 1 Alcohol Intake: former Substance Use Type: denies use *Occupational Status:: retired Housing: house Household Members: none *Travel in the last 8 weeks: None Family Hx:: Cancer, Hypertension, Stroke Review of Systems - Constitutional Reports anorexia, Reports fatigue, Reports malaise, Reports weakness, Reports weight loss, Denies body ache(s), Denies chills, Denies fever(s) - *Cardiovascular Denies chest pain, Denies chest pain at rest - *Respiratory Reports chest congestion, Reports cough, Reports shortness of breath, Denies change in phlegm color, Denies coughing up blood - *Gastrointestinal Denies abdominal pain, Denies belching - *Genitourinary Denies difficulty urinating - *Musculoskeletal Reports abnormal walking, Reports decreased muscle mass - Integumentary/Breasts Reports change in skin color (Serpiginous brown discoloration on lower back (erythema ab igne)) Meds Home Medications Medication Instructions Recorded Confirmed Type atorvastatin 80 mg tablet 1 tab PO HS 07/31/19 03/22/20 History clopidogrel 75 mg tablet 1 tab PO DAILY 07/31/19 03/22/20 History ptdgfa-uxqzfclh-poxdyuc 1 cap PO DAILY 07/31/19 03/22/20 History 24,000-76,000-120,000 unit capsule,delayed rel aspirin 81 mg tablet,delayed 81 mg PO DAILY 03/13/20 03/22/20 History release dexamethasone 2 mg tablet 2 mg PO BID tab 03/13/20 03/22/20 History gabapentin 300 mg capsule 300 mg PO QID cap 03/13/20 03/22/20 History lisinopril 40 mg tablet 40 mg PO DAILY 03/13/20 03/22/20 History melatonin 3 mg capsule 3 mg PO HS PRN 03/13/20 03/22/20 History omeprazole 40 mg capsule,delayed 40 mg PO BID 03/13/20 03/22/20 History release Amlodipine Besylate [Amlodipine 5 mg PO DAILY 03/22/20 03/22/20 History 5mg tab] Allergies Allergy/AdvReac Type Severity Reaction Status Date / Time No Known Allergies Allergy Verified 03/17/20 13:34 Exam Vital signs and Labs for Last 24 Hours: Temp Pulse Resp BP Pulse Ox 98.3 F 100 H 17 98/55 L 90 L 10
--- NOTE | 2020-03-23 12:17 | HMH.PHAVTE ---
[facility] Pharmacy VTE Monitoring - Patient Demographics Admission date: 03/23/20 Report Date: 03/23/20 Time: 12:17 Allergies/Adverse Reactions: Patient Allergies No Known Allergies Allergy (Verified 03/17/20 13:34) Height: 1.8 m Weight: 45.841 kg Patient Problems: Current Active Problems Respiratory failure with hypoxia (Acute) Healthcare-associated pneumonia (Acute) Acute renal failure (Acute) Sepsis (Acute) Metastatic primary lung cancer (Acute) Klebsiella sepsis (Acute) - VTE Risk Labs: VTE Related Lab Results Hgb 7.2 g/dL (14.1-18.0) L* 03/23/20 05:55 Hct 24.2 % (42.0-52.0) L 03/23/20 05:55 Plt Count 260 K/mm3 (142-424) D 03/23/20 05:55 PT 10.9 seconds (9.4-11.8) 03/22/20 13:15 INR 0.98 (0.9-1.1) 03/22/20 13:15 APTT 32.7 seconds (23.6-34.0) 03/22/20 13:15 BUN 105 mg/dl (9-20) H* 03/23/20 05:55 Creatinine 2.50 mg/dl (0.66-1.25) H 03/23/20 05:55 Estimated Creat Clear 21 mL/min (50-200) 03/23/20 05:55 VTE Score: 5 VTE Risk Level: Low Risk - Prophylaxis Types of VTE Prophylaxis: TEDS Knee High (IGNACIA HOSE ORDERED)
[2020-03-23 16:21] LABS: INR 0.98 (0.9-1.1)
[2020-03-23 16:23] LABS: Blood Urea Nitrogen 88 mg/dl (9-20); Carbon Dioxide 10 mmol/L (22.0-30.0)
[2020-03-23 19:22] LABS: Hemoglobin 8.4 g/dL (14.1-18.0)
[2020-03-23 19:23] LABS: Hematocrit 28.3 % (42.0-52.0)
--- NOTE | 2020-03-23 20:08 | PC.NURSE ---
THIS MORNING PT STATED HE HAD A REALLY GOOD NIGHT AND WAS ABLE TO GET SOME SLEEP. PT WAS SLOW TO RESPOND BUT WAS ABLE TO ANSWER QUESTIONS. PCP SAT AND TALKED TO PT THIS MORNING AND WENT OVER EVERYTHING THOROUGHLY OF WHAT PT WAS UP AGAINST FAR HIS ILLNESS. PT AT THIS TIME WAS NOT READY TO GIVE UP. PCP STATED HE WOULD CALL HIS AND LET HER KNOW WHAT WAS GOING ON. BP THIS MORNING STAYED AROUND 90'S SYSTOLIC. PT HAS HAD SEVERAL STICKS FOR IV ACCESS AND LABS SINCE ARRIVING TO [facility]. IV ACCESS WAS ATTEMPTED THIS MORNING AND UNSUCCESSFUL. PCP RECOMMENDED PICC PLACEMENT. HOUSE WAS NOTIFIED TO CALL NURSE SILK SCREEN FRAME ASSEMBLER TO SEE IF SHE CAN COME IN TO INSERT PICC. PROTONIX DRIP AND IVF'S WAS RUNNING CONCURRENT AT THIS TIME THROUGH 20 G IN THE LT HAND. PT'S BP STARTED TO STEADILY DECLINE AND PT WAS BECOMING LESS RESPONSIVE. PROTONIX DRIP WAS DISCONNECTED AND THE FIRST UNIT OF PRBC'S WAS STARTED. DURING THE TRANSFUSION BP WAS CONTINUING TO DECLINE O2 SATURATION WAS ONLY 90% ON 4 L NC. RESPIRATIONS 12. PCP NOTIFIED AND HE STATED TO ADDRESS CODE STATUS WITH PT'S . LIVING WILL STATES IF PT IS UNABLE TO MAKE DECISIONS FOR HIMSELF HE WAS LEAVING IT UP TO HIS OR DAUGHTER TO. PT'S WAS INFORMED THAT EVEN WITH THE UNIT OF BLOOD RUNNING PT'S BP WAS CONTINUING TO DROP. PT HAS NOT HAD ANY URINARY OUTPUT SO FAR THIS SHIFT. VASOPRESSORS WAS DISCUSSED WITH PT'S AND SHE STATED THAT HE HAS BEEN REALLY SICK FOR ABOUT 5 YEARS AND SINCE THE CANCER DIAGNOSIS HE HAS DECLINED REALLY QUICKLY. STATED HER AND HER DAUGHTER ARE ON THE SAME PAGE AND ARE BOTH AGREEABLE WITH CHANGING PT'S CODE STATUS TO DNR. AFTER SIGNED DNR NURSE SILK SCREEN FRAME ASSEMBLER CAME AND ASKED FAMILY IF THEY STILL WANTED TO PROCEED WITH PICC LINE PLACEMENT. PROCEDURE WAS EXPLAINED AND ANOTHER OPTION WAS TO TRY TO FIND ANOTHER IV ACCESS WITH THE ULTRASOUND. AND DAUGHTER WAS AGREEABLE TO THE ULTRASOUND GUIDED IV BUT THEY DID NOT FEEL THE PICC WAS NECESSARY AT THIS POINT. NURSE SILK SCREEN FRAME ASSEMBLER ATTEMPTED BUT WAS UNABLE TO GET IV WITH ULTRASOUND BUT WAS ABLE TO GET ANOTHER ACCESS ( 22 G TO LFA ). AT THE END OF THE FIRST BLOOD TRANSFUSION 20 G IN THE LEFT HAND STARTED TO LEAK AND HAD TO SWITCHED TO THE 22 G. DURING SECOND TRANSFUSION BP CONTINUED TO DECLINE. PT IS COMPLETELY UNRESPONSIVE AT THIS TIME. BP WAS NEVER HIGHER THAN 70'S SYSTOLIC THROUGH THE SECOND UNIT OF PRBC'S. (PCP UPDATED) RESPIRATIONS 10-12. O2 SATURATION 88-92% ON 4 L NC. PT WAS TURNED AND REPOSITIONED PER FAMILY REQUEST. STATED SHE JUST WANTED PT TO BE COMFORTABLE. IVF'S/ANTIBIOTICS/OXYGEN WAS CONTINUED.
--- NOTE | 2020-03-23 20:55 | P.DN_ITS ---
Pronouncement Note - Date and Time of Date of : 03/23/20 Time of : 20:40 - Additional Data Confirmation of : no pulse, no respirations, pupils fixed and dilated Family: at bedside Attending/PCP notified?: Yes Attending physician: Luis Gamez MD Was code activated?: No Autopsy requested?: No branch examiner notified?: No Organ bank notified?: Yes Advance directives: Yes
--- NOTE | 2020-03-23 21:09 | PC.NURSE ---
at 2039 pt found unresponsive, no heart sounds auscultated,, PCP Dr. Gamez notified of at 2042, advised to have ER doctor pronounce, Dr. Leary pronounced, time of 2039, House notified at 2048, ALANNA called at 2099, Cindy Moses case # [id number], family in room with patient at this time
--- NOTE | 2020-03-23 22:47 | PC.NURSE ---
home left with patient at this time.
--- NOTE | 2020-03-24 06:59 | [facility].DCSUM ---
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 Patient was found to have bilateral pneumonia as well as acute kidney injury. Patient was admitted for treatment of hospital-acquired pneumonia due to recent hospitalization at the [facility] where his cancer diagnosis was made. Since discharge from patient is followed up with local oncology with anticipation of beginning some form of treatment as well as local surgeon with scheduled port placement for March 26. Regarding patient's history over the last 3 days the patient is the source of interview and can provide little very little information other than he was weaker and felt short of breath. He is unaware of any fevers. He denies chills. He does endorse a poor appetite and records would indicate patient has lost approximately 20 pounds in the last 2 weeks. Apparently there had been discussion during his visit with Dr. Rodriguez about placement of a feeding tube although there is suspicion of carcinomatosis which could complicate the procedure. Hospital Course Hospital Course: Patient was admitted and started on broad-spectrum antibiotics for bilateral pneumonia and sepsis. On the morning of March 23 patient was also found to be anemic and so patient was typed and screened and plan for 2 units of packed red blood cells transfusion. Patient was weak and unable to take a sip of water or hold his head up. Discussion was had first with the patient regarding his diagnoses that were requiring hospitalization and have that complicated his ability to seek treatment for his cancer. Discussion was also had with the patient's and his daughter. Despite blood transfusion and IV fluids patient's blood pressure declined during the day and clinically patient deteriorated. Early on on March 23 patient was no longer able to respond to questions and periods of apnea were noted. decided to make the patient a DNR. Patient passed later in the day on March 23. Objective Vital signs: Temp Pulse Resp BP Pulse Ox 97.5 F L 96 H 10 L 97/38 L 90 L 03/23/20 19:15 03/23/20 20:24 03/23/20 19:30 03/23/20 19:15 03/23/20 19:30 Results Labs on day of discharge: Labs from last 24 hours 03/23/20 03/23/20 03/23/20 19:05 08:15 05:55 Hgb 8.4 L D Hct 28.3 L INR Sodium 141 Potassium 5.1 Chloride 116 H Carbon Dioxide 9 L* Anion Gap 21.1 H BUN 105 H* Creatinine 2.50 H Estimated Creat Clear 21 Estimated GFR 27 L Est GFR ( Amer) 32 L Glucose 135 H D Calcium 8.0 L D Blood Type A Positive Antibody Screen Negative Crossmatch ([facility]) See Detail 03/22/20 03/22/20 13:15 13:15 Hgb Hct INR 0.98 Sodium Potassium Chloride Carbon Dioxide 10 L Anion Gap BUN 88 H Creatinine Estimated Creat Clear Estimated GFR Est GFR ( Amer) Glucose Calcium Blood Type Antibody Screen Crossmatch ([facility]) Preliminary micro results at discharge 03/22/20 13:15 Blood Culture - Preliminary Blood Gram Negative Rods 03/22/20 13:15 Blood Culture - Preliminary Blood Gram Negative Rods DS: Diagnosis - Discharge Diagnosis (1) Acute renal failure Status: Acute (2) Metastatic primary lung cancer Status: Acute Discharge Plan - Patient Discharge Instructions Patient Instructions: Pneumonia-Adult, Lung Cancer, Sepsis, DI for Pneumonia -- Adult, Acute Renal Failure, DI for Lung Cancer, DI for Sepsis -- Adult, DI for Respiratory Failure, Respiratory Failure - Follow up Plan Disposition: Home Medications: Home Medications Medication Instructions Recorded Confirmed
== END 2020-03-23 22:47 | disposition expired | DRG 193 ==
LOC: ER 14:30 → 2ND 14:51
PROVIDERS: Admitting Provider Emergency Medicine; Emergency Provider Emergency Medicine; PCP Family Medicine; Visit Provider Family Medicine
DX: J18.9 Pneumonia, unspecified organism (principal); J96.01 Acute respiratory failure with hypoxia; C34.90 Malignant neoplasm of unspecified part of unspecified bronchus or lung; C79.89 Secondary malignant neoplasm of other specified sites; K92.2 Gastrointestinal hemorrhage, unspecified; R64 Cachexia; Z68.1 Body mass index [BMI] 19.9 or less, adult; N17.9 Acute kidney failure, unspecified; J44.9 Chronic obstructive pulmonary disease, unspecified; Z95.5 Presence of coronary angioplasty implant and graft; Z72.0 Tobacco use; D64.9 Anemia, unspecified; Z79.52 Long term (current) use of systemic steroids; Z79.82 Long term (current) use of aspirin; Z79.899 Other long term (current) drug therapy
CPT/HCPCS: 36415; 71045; 80048; 80053; 82272; 82803; 83605; 83880; 84484; 85007; 85014; 85018; 85025; 85610; 85730; 86328; 86850; 87040; 87070; 87077; 87186; 87205; 93005; 94640; 94760; 96365; 96367; 96375; 99285; G0328; J0692; J1956; J2405; J3370; P9016